=== PATIENT | male | born 2000 | race Caucasian/White ===

== ENCOUNTER 2022-08-04 13:57 | Emergency (ER) | payer MEDICAID ==
[~2022-08-04] VITALS: Ht 177.8 cm; Wt 114.0 kg
[2022-08-04 16:16] VITALS: BP 114/59
== END 2022-08-04 18:51 | disposition home or self-care (01) ==
LOC: ER 13:57
DX: R68.89 Other general symptoms and signs (principal); F12.10 Cannabis abuse, uncomplicated; F15.10 Other stimulant abuse, uncomplicated
CPT/HCPCS: 99283